=== PATIENT | male | born 1975 | race Caucasian/White ===

== ENCOUNTER 2019-08-10 12:21 | Emergency (ER) | payer MEDICARE ==
[~2019-08-10] VITALS: Ht 200.7 cm; Wt 127.9 kg
[2019-08-10] MEDS ORDERED: LIDOCAINE HCL100 ML MT (15:15)
== END 2019-08-10 15:30 | disposition home or self-care (01) ==
LOC: ED 12:21
DX: S43.004A Unspecified dislocation of right shoulder joint, initial encounter (principal); S01.511A Laceration without foreign body of lip, initial encounter; W22.8XXA Striking against or struck by other objects, initial encounter; I10 Essential (primary) hypertension; G43.909 Migraine, unspecified, not intractable, without status migrainosus
CPT/HCPCS: 73030; 99283-25